=== PATIENT | male | born 1965 | race Caucasian/White ===

== ENCOUNTER → 2017-03-18 | Outpatient (CLI) | payer BC ==
--- NOTE | 2017-03-18 17:21 | RAD ---
Examination: 2 views of soft tissue neck and 2 views of the chest. HISTORY: History of chicken bone in the throat Comparison: None available FINDINGS: The cardiomediastinal silhouette grossly appears unremarkable. There is no acute infiltrate or visualized pneumothorax identified. There is subtle radiodensity identified in the trachea just posterior and inferior to the level of the angle of the jaw seen on the lateral view of the soft tissue neck is probably soft tissue calcification and less likely a foreign body. Recommend repeat lateral view radiograph with neck extension. IMPRESSION: There is subtle radiodensity identified in the trachea just posterior and inferior to the level of the angle of the jaw seen on the lateral view of the soft tissue neck is probably soft tissue calcification and less likely a foreign body. Recommend repeat lateral view radiograph with neck extension. Electronically signed by: Brayan Montgomery MD (03/18/2017 5:18 PM) [facility]
== END | disposition home or self-care (01) ==
LOC: RAD 16:54
PROVIDERS: ATTEND Nurse Practitioner Family
DX: T17.228A Food in pharynx causing other injury, initial encounter (principal); R05 Cough; X58.XXXA Exposure to other specified factors, initial encounter; Y93.89 Activity, other specified; Y92.89 Other specified places as the place of occurrence of the external cause; Y99.8 Other external cause status
CPT/HCPCS: 70360; 71020

== ENCOUNTER → 2017-04-08 | Outpatient (CLI) | payer BC ==
[~2017-04-08] MED LIST: IOHEXOL 240 MG/ML 50ML VIAL. ONE; IOHEXOL 240 MG/ML 50ML VIAL. PO ONE; IOHEXOL 300 MG/ML 75 ML VIAL. IV ONE
[2017-04-08 11:41] LABS: ALBUMIN 3.7 g/dL (3.4-5.0); ALBUMIN/GLOBULIN RATIO 0.8 (1.0-1.7); CALCIUM 9.3 mg/dL (8.5-10.1); GFR 78.8; POTASSIUM 4.3 mmol/L (3.5-5.1); TOTAL BILIRUBIN 1.3 mg/dL (0.2-1.0); TOTAL PROTEIN 8.2 g/dL (6.4-8.2)
[2017-04-08 11:47] LABS: BASO % 0 % (0-3); EOS # 0.4 x10^3/uL (0.0-0.7); EOS % 4 % (0-3); HEMATOCRIT 45.4 % (39.0-53.0); HEMOGLOBIN 16.2 g/dL (13.0-17.5); LYMPH # 3.4 x10^3/uL (1.0-4.8); LYMPH % 30 % (24-48); MEAN CORPUSCULAR HEMOGLOBIN 32 pg (25-35); MEAN CORPUSCULAR HGB CONC 36 g/dL (31-37); MEAN CORPUSCULAR VOLUME 90 fL (79-100); MONO # 1.1 x10^3/uL (0.0-1.1); MONO % 10 % (0-9); NEUT # 6.3 x10^3uL (1.8-7.7); NEUT % 56 % (31-73); PLATELET COUNT 217 x10^3/uL (140-400); RED BLOOD COUNT 5.04 x10^6/uL (4.30-5.70); RED CELL DISTRIBUTION WIDTH 12.6 % (11.5-14.5); WHITE BLOOD COUNT 11.4 x10^3/uL (4.0-11.0)
--- NOTE | 2017-04-08 12:12 | RAD ---
EXAM: Abdomen and pelvis CT with intravenous contrast. HISTORY: Right lower quadrant pain. TECHNIQUE: Computed tomographic images of the abdomen and pelvis were obtained following the administration of 75 cc Omnipaque 300 intravenous contrast. Multiplanar reformatting was performed. COMPARISON: None. FINDINGS: Evaluation of the lower thorax demonstrates a tiny pleural-based nodular opacity within the lateral left lung base, likely due to subsegmental atelectasis. No suspicious nodule is seen. There is no infiltrate or effusion. There is a small nonspecific left distal there are esophageal lymph node. There is hepatic steatosis. No focal hepatic lesion is seen. The gallbladder, pancreas, spleen, adrenal glands and kidneys are unremarkable. There is an abnormally thickened appendix, measuring 11 mm in maximum caliber. There is no significant surrounding stranding. There is no bowel obstruction. There is no free air. The bladder is decompressed. There are dystrophic calcifications within the prostate. No pathologically enlarged lymph node is seen. There is a small fat-containing umbilical hernia. There is an L4 limbus vertebrae, an incidental finding. There are multiple thoracic and lumbar endplate Schmorl's nodes. IMPRESSION: 1. Abnormally thickened appendix measuring 11 mm in maximum caliber. Despite the absence of significant surrounding periappendiceal stranding, the appendiceal caliber and history of right lower quadrant pain favors acute appendicitis. The possibility of appendiceal wall thickening due to underlying neoplasm is not excluded. 2. Hepatic steatosis. 3. Small fat-containing umbilical hernia. PQRS Compliance Statement: One or more of the following individualized dose reduction techniques were utilized for this examination: 1. Automated exposure control 2. Adjustment of the mA and/or kV according to patient size 3. Use of iterative reconstruction technique
== END | disposition home or self-care (01) ==
LOC: CT 09:59
PROVIDERS: ATTEND Family Medicine
DX: K76.0 Fatty (change of) liver, not elsewhere classified (principal); K42.9 Umbilical hernia without obstruction or gangrene; N42.89 Other specified disorders of prostate; M51.44 Schmorl's nodes, thoracic region; M51.46 Schmorl's nodes, lumbar region
CPT/HCPCS: 36415; 74177; 80053; 82150; 83690; 85025; Q9966; Q9967